=== PATIENT | male | born 1965 ===

== ENCOUNTER 2018-06-15 02:10 | Emergency (ER) | payer BC ==
[~2018-06-15] VITALS: Ht 177.8 cm; Wt 77.3 kg
[~2018-06-15 02:10] MED LIST: FLOMAX 0.40.4 MG/CAP PO; NORCO 325 MG-51 TAB PO; ULTRAM 50MG TAB50 MG PO; WELLBUTRIN SR150 M1 PO; ZOFRAN 4MG T4 MG/TAB PO
[2018-06-15 02:12] VITALS: TEMP 100.2
[2018-06-15 02:53] LABS: BASO % 0.5 % (0.0-2.0); EOS # 0.1 (0.0-0.7); EOS % 0.9 % (0-4.0); GRAN # 6.3 (1.4-6.5); GRAN % 77.2 % (42.2-75.2); HEMATOCRIT 39.5 % (42.0-52.0); HEMOGLOBIN 14.2 g/dl (13.5-18.0); LYMPH % 11.8 % (20.0-51.0); MEAN CELL VOLUME 87 fl (80.0-100.0); MEAN CORPUSCULAR HEMOGLOBIN 31 pg (27.0-31.0); MEAN CORPUSCULAR HGB CONC 36 g/dl (33.0-37.0); MEAN PLATELET VOLUME 9.6 fl (7.4-10.4); MONO # 0.8 (0.1-0.6); MONO % 9.4 % (1.7-9.3); PLATELET COUNT 156 K/mm3 (130-400); RED BLOOD COUNT 4.55 M/mm3 (4.20-5.60); REDCELL DISTRIBUTION WIDTH-CV 12.1 % (11.5-14.5)
[2018-06-15 03:10] LABS: ALANINE AMINOTRANSFERASE 31 U/L (21-72); ALBUMIN 4.1 gm/dL (3.5-5.0); ALKALINE PHOSPHATASE 52 U/L (50-136); ANION GAP 12 mmol/L (7-16); AST,SGOT 25 U/L (15-37); BILIRUBIN,TOTAL 0.6 mg/dL (0.0-1.0); BLOOD UREA NITROGEN 11 mg/dL (9-20); CALCIUM 8.7 mg/dL (8.4-10.2); CARBON DIOXIDE 23 mmol/L (22-30); CHLORIDE 101 mmol/L (98-107); CREATINE KINASE 274 U/L (55-170); CREATININE, serum 0.86 mg/dL (0.66-1.25); GLUCOSE 128 mg/dL (74-106); POTASSIUM 3.8 mmol/L (3.4-5.0); SODIUM 136 mmol/L (137-145); TOTAL PROTEIN 7.2 gm/dL (6.4-8.2)
[2018-06-15 03:23] LABS: TROPONIN-I < 0.012 ng/mL (0.000-0.034)
[2018-06-15] MEDS ORDERED: ZITHROMAX Z PA250 MG PO (03:57)
[2018-06-15 04:10] VITALS: BP 118/67; PULSE 89
== END 2018-06-15 04:10 | disposition home or self-care (01) ==
LOC: COL.ER 02:10
PROVIDERS: Emergency Medicine
DX: S01.01XA Laceration without foreign body of scalp, initial encounter (principal); R55 Syncope and collapse; B34.9 Viral infection, unspecified; R53.1 Weakness; Z95.9 Presence of cardiac and vascular implant and graft, unspecified; X58.XXXA Exposure to other specified factors, initial encounter
CPT/HCPCS: J1885; J7030

== ENCOUNTER 2018-06-25 09:22 | Emergency (ER) | payer BC ==
[~2018-06-25 09:22] MED LIST changes: +ZITHROMAX Z PA250 MG PO
[2018-06-25 09:27] VITALS: BP 119/73; PULSE 77; TEMP 98.8
== END 2018-06-25 09:34 | disposition home or self-care (01) ==
LOC: COL.ER 09:22
DX: S01.01XD Laceration without foreign body of scalp, subsequent encounter (principal)